=== PATIENT | female | born 1935 | race Caucasian/White ===

== ENCOUNTER 2016-04-16 10:39 | Emergency (ER) | payer MEDICARE ==
--- NOTE | 2016-04-16 10:47 | ER Document Report ---
ED Medical Screen (RME) - General Stated Complaint: ARM PAIN Notes: 80 yo female c/o left arm pain x 2 days. pain to left dorsal hand and wrist. + warmth. no trauma other than lifting package of water. BP is elevated. no hx/o HTN. Takes Metoprolol for irregular heart rate TRAVEL OUTSIDE OF THE [place] IN LAST 30 DAYS: No - Related Data Allergies/Adverse Reactions: acetaminophen [From Percocet] Allergy (Verified 04/16/16 10:43) rash oxycodone HCl [From Percocet] Allergy (Verified 04/16/16 10:43) rash Past Medical History - Past Medical History Cardiac Medical History: Denies: Hx Heart Attack, Hx Hypertension Pulmonary Medical History: Denies: Hx Asthma Neurological Medical History: Denies: Hx Cerebrovascular Accident, Hx Seizures GI Medical History: Denies: Hx Hepatitis, Hx Hiatal Hernia, Hx Ulcer Infectious Medical History: Denies: Hx Hepatitis Past Surgical History: Reports: Hx Hysterectomy. Denies: Hx Mastectomy, Hx Open Heart Surgery, Hx Pacemaker
[2016-04-16 11:26] LABS: ABSOLUTE BASOPHILS # (AUTO) 0.1 10^3/uL (0.0-0.2); ABSOLUTE EOSINOPHILS # (AUTO) 0.1 10^3/uL (0.0-0.6); ABSOLUTE LYMPHOCYTES (AUTO) 1.2 10^3/uL (0.5-4.7); ABSOLUTE MONOCYTES (AUTO) 1.1 10^3/uL (0.1-1.4); ABSOLUTE NEUT (AUTO) 10.2 10^3/uL (1.7-8.2); BASOPHILS % (AUTO) 0.5 % (0-2); EOSINOPHILS % (AUTO) 0.9 % (0-6); HEMATOCRIT 37.4 % (36.0-47.0); HEMOGLOBIN 12.6 g/dL (12.0-15.5); HGB HCT DIFFERENCE 0.4; LYMPHOCYTES % (AUTO) 9.5 % (13-45); MEAN CORPUSCULAR HEMOGLOBIN 30.8 pg (27.0-33.4); MEAN CORPUSCULAR HGB CONC 33.6 g/dL (32.0-36.0); MEAN CORPUSCULAR VOLUME 92 fl (80-97); MONOCYTES % (AUTO) 8.6 % (3-13); RED BLOOD COUNT 4.07 10^6/uL (3.72-5.28); RED CELL DISTRIBUTION WIDTH 12.3 % (11.5-14.0); SEGMENTED NEUTROPHILS % (AUTO) 80.5 % (42-78); WHITE BLOOD COUNT 12.7 10^3/uL (4.0-10.5)
--- NOTE | 2016-04-16 11:28 | ER Document Report ---
ED Extremity Problem, Upper - General Chief Complaint: Arm Pain Stated Complaint: ARM PAIN Time seen by provider: 11:23 Mode of Arrival: Ambulatory Information source: Patient Notes: 80-year-old female presents to ED for complaint of left hand pain and swelling with erythema since yesterday. This has been hurting for years but much worse for the last 2 weeks and then last night it started swelling and became red states she was lifting a lot of boxes she doesn't know if she injured something due to her severe arthritis. TRAVEL OUTSIDE OF THE [place] IN LAST 30 DAYS: No - HPI Patient complains to provider of: Left, Hand, Wrist Onset: Yesterday Recent injury: Possibly Where: Home Quality of pain: Sharp Severity of pain: Moderate Pain Level: 4 Context: Other - Lifting heavy boxes Associated symptoms: Fever - Erythema pain swelling Exacerbated by: Movement, Exertion Relieved by: Rest, Positioning Similar symptoms previously: Yes - not the erythema warmth Recently seen / treated by doctor: No - Related Data Allergies/Adverse Reactions: acetaminophen [From Percocet] Allergy (Verified 04/16/16 10:43) rash oxycodone HCl [From Percocet] Allergy (Verified 04/16/16 10:43) rash Past Medical History - General Information source: Patient - Social History Smoking Status: Former Smoker Cigarette use (# per day): No Chew tobacco use (# tins/day): No Smoking Education Provided: No Frequency of alcohol use: None Drug Abuse: None Occupation: retired Lives with: Family Family History: Arthritis, CAD, CVA, DM, Hyperlipidemia, Hypertension, Malignancy, Thyroid Disfunction Patient has suicidal ideation: No Patient has homicidal ideation: No - Past Medical History Cardiac Medical History: Reports: Hx Atrial Fibrillation, Hx Hypercholesterolemia, Hx Hypertension Pulmonary Medical History: Reports: None EENT Medical History: Reports: None Neurological Medical History: Reports: None Endocrine Medical History: Reports: None Renal/ Medical History: Reports: Other - Uterine fibroids Malignancy Medical History: Reports: None GI Medical History: Reports: Hx Gastroesophageal Reflux Disease Musculoskeltal Medical History: Reports Hx Arthritis Skin Medical History: Reports None Psychiatric Medical History: Reports: None Traumatic Medical History: Reports: None Infectious Medical History: Reports: None Past Surgical History: Reports: Hx Dilation and Curettage, Hx Gynecologic Surgery - Conization, Hx Hysterectomy, Other - Tumor removed from neck - Immunizations Immunizations up to date: Yes Hx Diphtheria, Pertussis, Tetanus Vaccination: Yes Review of Systems - Review of Systems Constitutional: No symptoms reported EENT: No symptoms reported Cardiovascular: No symptoms reported Respiratory: No symptoms reported Gastrointestinal: No symptoms reported Genitourinary: No symptoms reported Female Genitourinary: No symptoms reported Musculoskeletal: Other - Left hand and wrist painful swollen erythema Skin: Other - Erythema and swelling to left hand and wrist Hematologic/Lymphatic: No symptoms reported Neurological/Psychological: No symptoms reported -: Yes All other systems reviewed and negative Physical Exam - Vital signs Vitals: Temp Pulse Resp BP Pulse Ox 98.6 F 72 16 160/123 H 96 04/16/16 10:43 04/16/16 10:43 04/16/16 10:43 04/16/16 10:43 04/16/16 10:43 Interpretation: Normal, Hypertensive - 160/123 patient states her blood pressures up any time she has pain for recheck this - General General appearance: Appears well, Alert - HEENT Head: Normocephalic, Atraumatic Eyes: Normal Pupils: PERRL - Respiratory Respiratory status: No respiratory distress Chest status: Nontender Breath sounds: Normal Chest palpation: Normal - Cardiovascular Rhythm: Regular Heart sounds: Normal auscultation Murmur: No - Abdominal Inspection: Normal Distension: No distension Bowel sounds: Normal Tenderness: Nontender Organomegaly: No organomegaly - Back Back: Normal, Nontender - Extremities General upper extremity: Normal inspection, Nontender, Normal color, Normal ROM , Normal temperature General lower extremity: Normal inspection, Nontender, Normal color, Normal ROM , Normal temperature, Normal weight bearing. No: Heide's sign Wrist: Tender, Other - Erythema, warmth, and swelling Hand: Tender, Swelling, Other - warmth and erythema - Neurological Neuro grossly intact: Yes Cognition: Normal Orientation: AAOx4 Vandana Coma Scale Eye Opening: Spontaneous [place] Coma Scale Verbal: Oriented [place] Coma Scale Motor: Obeys Commands [place] Coma Scale Total: 15 Speech: Normal Motor strength normal: LUE, RUE, LLE, RLE Sensory: Normal - Psychological Associated symptoms: Normal affect, Normal mood - Skin Skin Temperature: Warm Skin Moisture: Dry Skin Color: Normal Course - Re-evaluation Re-evalutation: 04/16/16 13:48 Discussed x-rays and labs with patient written reports given to patient to follow-up with her doctor Dr. Roger. We will discharge patient home with prescription for Keflex prednisone and ibuprofen for her UTI. - Vital Signs Vital signs: Temp Pulse Resp BP Pulse Ox 98.6 F 72 16 160/80 H 96 04/16/16 10:43 04/16/16 10:43 04/16/16 10:43 04/16/16 12:14 04/16/16 10:43 - Laboratory Result Diagrams: 04/16/16 10:55 04/16/16 10:55 Laboratory results interpreted by me: 04/16/16 04/16/16 04/16/16 10:55 10:55 12:30 WBC 12.7 H Seg Neutrophils % 80.5 H Lymphocytes % 9.5 L Absolute Neutrophils 10.2 H Glucose 150 H Ur Leukocyte Esterase LARGE H - Diagnostic Test Radiology reviewed: Image reviewed, Reports reviewed Discharge - Discharge Clinical Impression: UTI (urinary tract infection) Qualifiers: Urinary tract infection type: site unspecified Hematuria presence: without hematuria Qualified Code(s): N39.0 - Urinary tract infection, site not specified Gout Qualifiers: Gout site: wrist Gout etiology: unspecified cause Laterality: left Chronicity: acute Qualified Code(s): M10.9 - Gout, unspecified Condition: Stable Disposition: HOME, SELF-CARE Additional Instructions: Gout You have been diagnosed as having gout. Gout is a problem caused by an excess of uric acid, a natural chemical found in the body. The cause of this disease is unknown. Gout arthritis occurs when crystals of uric acid form in the joints. The big toe is the most common joint involved, but any joint can become affected. Persons with gout may also form uric acid kidney stones, resulting in flank pain and blood in the urine. Nodules of uric acid may form under the skin. The first step of treatment is to decrease the inflammation in the joint with antiinflammatory medication. Medication to lower the uric acid level in the blood may then be prescribed. This medication should be taken regularly, as any sudden change in dosage may provoke an attack of gout. Some foods, such as red meat, can provoke an attack in some gout sufferers. Call the doctor if new symptoms arise, or if you do not improve. Gout Diet Changing your diet can decrease the uric acid in your blood. High levels of uric acid cause gouty arthritis and uric acid kidney stones. If you have gout , you should avoid meats that are high in purine. Meat products to avoid include liver, kidneys, and brains. In general, poultry is better than red meats. Seafoods to avoid include anchovies, sardines, avila, mackerel, and scallops. In addition to limiting purine-rich foods, people with gout should limit protein intake to 10-15% of total calories. Carbohydrate intake should be around 50% of total daily calories. Limit fat intake to 30% of total daily calories. Cholesterol intake should be less than 300 mg/day. Maintain or achieve a healthy body weight. Weight loss should be gradual. Rapid weight loss can actually increase uric acid levels temporarily. Alcohol, especially beer, should be avoided. Get plenty of fluids. This dilutes urinary uric acid, and helps prevent uric acid kidney stones. Drink eight to twelve cups of water daily. URINARY TRACT INFECTION: Your evaluation indicates that you have a urinary tract infection. This is due to germs growing in the bladder. This is a common problem. This infection usually responds quickly to antibiotics. Your antibiotic should be taken exactly as prescribed. Drink plenty of fluids -- three to four quarts a day. Occasionally, a bladder anesthetic will be prescribed to help stop the feeling of urgency until the antibiotic has a chance to clear the infection. This may cause your urine to be dark orange. Certain urine infections require a culture. If the doctor obtained a culture, the results will be back in two days. You should call to see if a change in treatment is needed. A repeat urinalysis after you finish treatment is often recommended. The physician will let you know if further testing is required. Call the doctor if you develop fever, chills, flank pain, inability to urinate, or blood in the urine. CEPHALEXIN: The antibiotic you've been prescribed is a member of the cephalosporin class. This type of antibiotic covers a wide variety of infections, including those of the skin, lungs, and urinary tract. It's useful for staph infections. This antibiotic is slightly similar to the penicillin family. In rare cases , a person who is allergic to penicillin will also be allergic to this medication. If you have had a severe allergic reaction to penicillin, and have not taken this antibiotic since that time, notify your doctor. Antibiotics which cover many germs ("broad spectrum" antibiotics) are more likely to cause diarrhea or "yeast" infections. Women prone to vaginal yeast problems may suffer an attack after taking this antibiotic. In infants, oral thrush (white spots "stuck" on the cheek) or yeast diaper rash may result. See your doctor if these problems occur. Call at once if you develop itching, hives , shortness of breath, or lightheadedness. Ibuprofen Ibuprofen is an excellent, safe drug for pain control. In addition, it has potent antiinflammatory effects which are beneficial, especially in the treatment of injuries, arthritis, or tendonitis. It's best to take ibuprofen with food. Persons with ulcer disease or allergy to aspirin should notify their physician of this before taking ibuprofen. Take the medication exactly as prescribed. Don't take additional doses unless instructed to do so by your doctor. If you develop wheezing, shortness of breath, hives, faintness, stomach pain, vomiting, or dark black stools, return for re-evaluation at once. STEROID MEDICATION: You have been given a medicine of the cortisone/steroid class. This medication is used to control inflammation or allergy. It is usually only given for a short period of time, until the acute process subsides. There are usually no side effects from short-term use of cortisone-like medications. Some persons feel an increased sense of well-being and are not sleepy at bedtime. Long-term use of cortisone medications is best avoided, unless required for a severe condition. If your condition does not remit, or relapses after the course of corticosteroid medication, you should consult your physician. FOLLOW-UP CARE: If you have been referred to a physician for follow-up care, call the physician s office for an appointment as you were instructed or within the next two days. If you experience worsening or a significant change in your symptoms, notify the physician immediately or return to the Emergency Department at any time for re-evaluation. Prescriptions: Cephalexin Monohydrate [Keflex 500 mg Capsule] 500 mg PO QID #20 capsule Ibuprofen 400 mg PO Q8 #10 tablet Prednisone [Sterapred Ds] 1 pkg PO ASDIR PRN 12 Days PRN Reason: Forms: Elevated Blood Pressure Referrals: WELLINGTON ROGER [Primary Care Provider] - 04/17/16
[2016-04-16 11:47] LABS: ALANINE AMINOTRANSFERASE 32 U/L (9-52); ALBUMIN 4.6 g/dL (3.5-5.0); ALKALINE PHOSPHATASE 67 U/L (38-126); ANION GAP 12 (5-19); ASPARTATE AMINO TRANSFERASE 23 U/L (14-36); BILIRUBIN,TOTAL 0.7 mg/dL (0.2-1.3); BLOOD UREA NITROGEN 15 mg/dL (7-20); CARBON DIOXIDE 27 mmol/L (22-30); CHLORIDE 104 mmol/L (98-107); CREATININE RESULT 0.66 mg/dL (0.52-1.25); GLUCOSE 150 mg/dL (75-110); POTASSIUM 4.4 mmol/L (3.6-5.0); SODIUM 142.7 mmol/L (137-145); TOTAL PROTEIN 7.3 g/dL (6.3-8.2); URIC ACID 6.6 mg/dL (2.5-7.5)
[2016-04-16 12:15] VITALS: BP 160/80
[2016-04-16 13:11] LABS: APPEARANCE,URINE SLIGHTLY-CLOUDY; BILIRUBIN,URINE NEGATIVE (NEGATIVE); GLUCOSE, URINE NEGATIVE (NEGATIVE); KETONES,URINE NEGATIVE (NEGATIVE); LEUKOCYTE ESTERASE,URINE LARGE (NEGATIVE); NITRITE,URINE NEGATIVE (NEGATIVE); PROTEIN,URINE NEGATIVE (NEGATIVE); URINE SPECIFIC GRAVITY 1.014; UROBILINOGEN,URINE NEGATIVE mg/dL (<2.0)
[2016-04-16] MEDS ORDERED: IBUPROFEN 400 MG TABLET PO ONE (13:40)
[2016-04-16] MEDS ORDERED: PREDNISONE 20 MG TABLET PO ONE (13:40)
[2016-04-16] MEDS ORDERED: CEPHALEXIN 500 MG CAPSULE PO ONE (13:41)
== END 2016-04-16 14:10 | disposition home or self-care (01) ==
LOC: ER 10:39
DX: N39.0 Urinary tract infection, site not specified (principal); M10.9 Gout, unspecified; M79.602 Pain in left arm; M79.89 Other specified soft tissue disorders; Z87.891 Personal history of nicotine dependence
CPT/HCPCS: 99283; 36415; 84550; 85025; 80053; 81001; 73110; A9270 ×3; J3490; J7512

== ENCOUNTER 2020-04-28 18:12 | Emergency (ER) | payer MEDICARE ==
--- NOTE | 2020-04-28 18:50 | ER Document Report ---
ED Medical Screen (RME) - General Chief Complaint: Chest Pain Stated Complaint: CHEST PAIN Time Seen by Provider: 04/28/20 18:37 Primary Care Provider: WELLINGTON HOLLIDAY MD [Primary Care Provider] - Follow up as needed Notes: Patient is 84-year-old female with a history of high blood pressure who presents emergency department with a chief complaint of chest pain. Patient states she was riding down the road on the way to dinner when she developed chest pain in the center of her chest. This is nonradiating. States that this has lasted about 1 hour. Is not currently having chest pain. Patient states at the time she did get a weird sensation in her teeth. TRAVEL OUTSIDE OF THE [place] IN LAST 30 DAYS: No - Related Data Allergies/Adverse Reactions: acetaminophen [From Percocet] Allergy (Verified 04/28/20 18:31) rash oxycodone HCl [From Percocet] Allergy (Verified 04/28/20 18:31) rash Home Medications: metoprolol. levothyroxine. pravastatin. asa Past Medical History - Social History Chew tobacco use (# tins/day): No Frequency of alcohol use: None Drug Abuse: None - Past Medical History Cardiac Medical History: Reports: Hx Atrial Fibrillation, Hx Hyper cholesterolemia, Hx Hypertension Denies: Hx Heart Attack Pulmonary Medical History: Denies: Hx Asthma Neurological Medical History: Denies: Hx Cerebrovascular Accident, Hx Seizures GI Medical History: Reports: Hx Gastroesophageal Reflux Disease. Denies: Hx Hepatitis, Hx Hiatal Hernia, Hx Ulcer Musculoskeltal Medical History: Reports Hx Arthritis Infectious Medical History: Denies: Hx Hepatitis Past Surgical History: Reports: Hx Dilation and Curettage, Hx Gynecologic Surgery - Conization, Hx Hysterectomy, Other - Tumor removed from neck. Denies: Hx Mastectomy, Hx Open Heart Surgery, Hx Pacemaker - Immunizations Immunizations up to date: Yes Hx Diphtheria, Pertussis, Tetanus Vaccination: Yes Physical Exam - Vital signs Vitals: Temp Pulse Resp BP Pulse Ox 98.7 F 82 16 172/87 H 96 04/28/20 18:23 04/28/20 18:23 04/28/20 18:23 04/28/20 18:23 04/28/20 18:23 - Respiratory Respiratory status: No respiratory distress Chest status: Nontender Breath sounds: Normal Chest palpation: Normal - Cardiovascular Rhythm: Regular Heart sounds: Normal auscultation, S1 appreciated, S2 appreciated Course - Re-evaluation Re-evalutation: 04/28/20 18:51 Nontoxic-appearing 84-year-old female. Patient was noted to be hypertensive. Denies chest pain at this time. Will initiate basic labs. I have greeted and performed a rapid initial assessment of this patient. A comprehensive ED assessment and evaluation of the patient, analysis of test results and completion of the medical decision making process will be conducted by additional ED providers. - Vital Signs Vital signs: Temp Pulse Resp BP Pulse Ox 98.7 F 82 16 172/87 H 96 04/28/20 18:23 04/28/20 18:23 04/28/20 18:23 04/28/20 18:23 04/28/20 18:23 Doctor's Discharge - Discharge Referrals: WELLINGTON HOLLIDAY MD [Primary Care Provider] - Follow up as needed
[2020-04-28 19:17] LABS: ABSOLUTE EOSINOPHILS # (AUTO) 0.3 10^3/uL (0.0-0.6); ABSOLUTE LYMPHOCYTES (AUTO) 2.6 10^3/uL (0.5-4.7); ABSOLUTE NEUT (AUTO) 3.9 10^3/uL (1.7-8.2); HEMOGLOBIN 12.4 g/dL (12.0-15.5); LYMPHOCYTES % (AUTO) 33.4 % (13-45); RED CELL DISTRIBUTION WIDTH 12.6 % (11.5-14.0); TOTAL CELLS COUNTED % (AUTO) 100 %
[2020-04-28] MEDS ORDERED: NITROGLYCERIN 0.4 MG/TAB 25 TAB/BOTTLE SL ONE (19:22)
[2020-04-28 19:24] LABS: ABSOLUTE MONOCYTES (AUTO) 0.9 10^3/uL (0.1-1.4); BASOPHILS % (AUTO) 0.6 % (0-2); EOSINOPHILS % (AUTO) 3.4 % (0-6); HEMATOCRIT 37.2 % (36.0-47.0); MEAN CORPUSCULAR HEMOGLOBIN 30.1 pg (27.0-33.4); MEAN CORPUSCULAR HGB CONC 33.5 g/dL (32.0-36.0); MEAN CORPUSCULAR VOLUME 90 fl (80-97); MONOCYTES % (AUTO) 11.8 % (3-13); PLATELET COUNT 235 10^3/uL (150-450); RED BLOOD COUNT 4.14 10^6/uL (3.72-5.28); SEGMENTED NEUTROPHILS % (AUTO) 50.8 % (42-78); WHITE BLOOD COUNT 7.6 10^3/uL (4.0-10.5)
--- NOTE | 2020-04-28 19:27 | EKG REPORT ---
SEVERITY:- BORDERLINE ECG - SINUS RHYTHM LVH BY VOLTAGE : Confirmed by: Cesar Vázquez MD 28-Apr-2020 19:27:14
--- NOTE | 2020-04-28 19:28 | ER Document Report ---
ED General - General Chief Complaint: Chest Pain Stated Complaint: CHEST PAIN Time Seen by Provider: 04/28/20 18:37 Primary Care Provider: WELLINGTON HOLLIDAY MD [Primary Care Provider] - Follow up as needed TRAVEL OUTSIDE OF THE [place] IN LAST 30 DAYS: No - HPI Notes: 84-year-old female presents with chest pain. Patient states that about 2 hours prior to evaluation, she developed an episode of central chest pain. States that she was in the car on the way to go to dinner P reports that it was hurting bad. States that she had an abnormal sensation in her teeth and a slight hea dache. Pain did not radiate. Patient ports that she has had this chest pain before. She states that she was seen in this emergency department and transferred to another facility, she states that she was diagnosed with extra heartbeats. She states that she did not have any stents placed. She has been on metoprolol since then. Patient reports she is currently pain-free. She has not yet taken her metoprolol as she takes this at night. She reports that her blood pressure is usually normal. - Related Data Allergies/Adverse Reactions: acetaminophen [From Percocet] Allergy (Verified 04/28/20 18:31) rash oxycodone HCl [From Percocet] Allergy (Verified 04/28/20 18:31) rash Home Medications: metoprolol. levothyroxine. pravastatin. asa Past Medical History - General Information source: Patient - Social History Smoking Status: Never Smoker Chew tobacco use (# tins/day): No Frequency of alcohol use: None Drug Abuse: None Family History: Arthritis, CAD, CVA, DM, Hyperlipidemia, Hypertension, Malignancy, Thyroid Disfunction Patient has homicidal ideation: No - Past Medical History Cardiac Medical History: Reports: Hx Atrial Fibrillation, Hx Hype rcholesterolemia, Hx Hypertension Denies: Hx Heart Attack Pulmonary Medical History: Denies: Hx Asthma Neurological Medical History: Denies: Hx Cerebrovascular Accident, Hx Seizures GI Medical History: Reports: Hx Gastroesophageal Reflux Disease. Denies: Hx Hepatitis, Hx Hiatal Hernia, Hx Ulcer Musculoskeletal Medical History: Reports Hx Arthritis Infectious Medical History: Denies: Hx Hepatitis Past Surgical History: Reports: Hx Dilation and Curettage, Hx Gynecologic Surgery - Conization, Hx Hysterectomy, Other - Tumor removed from neck. Denies: Hx Mastectomy, Hx Open Heart Surgery, Hx Pacemaker - Immunizations Immunizations up to date: Yes Hx Diphtheria, Pertussis, Tetanus Vaccination: Yes Review of Systems - Review of Systems Constitutional: denies: Chills, Fever EENT: No symptoms reported Cardiovascular: Chest pain Respiratory: denies: Short of breath Gastrointestinal: denies: Abdominal pain, Nausea, Vomiting Genitourinary: No symptoms reported Female Genitourinary: No symptoms reported Musculoskeletal: No symptoms reported Skin: No symptoms reported Hematologic/Lymphatic: No symptoms reported Neurological/Psychological: denies: Weakness Physical Exam - Vital signs Vitals: Temp Pulse Resp BP Pulse Ox 98.7 F 82 16 172/87 H 96 04/28/20 18:23 04/28/20 18:23 04/28/20 18:23 04/28/20 18:23 04/28/20 18:23 - General General appearance: Appears well, Alert In distress: None - HEENT Head: Normocephalic, Atraumatic Extraocular movements intact: Yes Pupils: PERRL - Respiratory Breath sounds: Normal - Cardiovascular Rhythm: Regular Heart sounds: Normal auscultation Normal capillary refill: Yes - Abdominal Tenderness: Nontender - Extremities General lower extremity: No: Edema - Neurological Neuro grossly intact: Yes Cognition: Normal Orientation: AAOx4 Speech: Normal Cranial nerves: Normal Motor strength normal: LUE, RUE, LLE, RLE - Psychological Associated symptoms: Normal affect - Skin Skin Temperature: Warm Course - Re-evaluation Re-evalutation: 84-year-old female presents with an episode of central chest pressure while she was in the car going to dinner. Chest pain-free upon evaluation. On exam patient is alert, well-appearing, neurologically intact, lungs are clear, heart RRR, no peripheral edema. She is noted to be fairly hypertensive. I am suspicious that the hypertension is the driving cause of the chest pain that she experienced. Her story is not necessarily completely concerning for ACS, however given her age she will need a 2 troponin evaluation. Her EKG is nonischemic. 04/28/20 20:25 Patient's blood pressure had initially improved following nitro, down to 120 systolic. Starting to creep up a little bit, currently 152/83, have ordered her typical home dose of metoprolol she has not yet taken this today. 04/28/20 22:42 Went into reassess patient. She remains chest pain-free. I updated her on relatively reassuring work-up currently. Her blood pressures still remain variable, currently in 160s, however symptom-free currently. Pending repeat troponin. 04/28/20 23:35 Troponin undetectable x2. Patient remains chest pain free. Her blood pressure has had a good decrease from the 200s, is 162 in the room. She has a follow-up with her primary care doctor tomorrow. She feels comfortable going home. As discussed strict return precautions, she is stable at time of discharge. - Vital Signs Vital signs: Temp Pulse Resp BP Pulse Ox 98.2 F 70 21 H 170/89 H 100 04/28/20 23:55 04/28/20 23:55 04/28/20 23:55 04/28/20 23:55 04/28/20 23:55 - Laboratory Results Result Diagrams: 04/28/20 18:55 04/28/20 18:55 Laboratory Results Interpreted: 04/28/20 18:55 Chloride 108 H Critical Laboratory Results Reviewed: No Critical Results - Radiology Results Critical Radiology Results Reviewed: No Critical Results - EKG Interpretation by Me Additional EKG results interpreted by me: EKG is interpreted by me. Sinus rhythm, rate 80. Narrow QRS, QTC within normal limits. No ST segment elevation or depression. LVH. Discharge - Discharge Clinical Impression: Hypertension Qualifiers: Hypertension type: essential hypertension Qualified Code(s): I10 - Essential (primary) hypertension Disposition: HOME, SELF-CARE Additional Instructions: Please follow-up with your primary care doctor tomorrow as planned. Please continue all medications as described, please discuss if you need to be started on another blood pressure medication or an increased dose of the metoprolol. Turn to the emergency department for any concerning worsening symptoms. Referrals: WELLINGTON HOLLIDAY MD [Primary Care Provider] - Follow up as needed
--- NOTE | 2020-04-28 19:30 | RADIOLOGY REPORT (SQ) ---
EXAM DESCRIPTION: CHEST 2 VIEWS IMAGES COMPLETED DATE/TIME: 04/28/2020 6:07 pm REASON FOR STUDY: chest pain COMPARISON: None. EXAM PARAMETERS: NUMBER OF VIEWS: two views TECHNIQUE: Digital Frontal and Lateral radiographic views of the chest acquired. RADIATION DOSE: NA LIMITATIONS: none FINDINGS: LUNGS AND PLEURA: Lungs are hyperinflated. No opacities, masses or pneumothorax. No pleur al effusion. MEDIASTINUM AND HILAR STRUCTURES: No masses or contour abnormalities. HEART AND VASCULAR STRUCTURES: Heart normal size. No evidence for failure. BONES: No acute findings. HARDWARE: None in the chest. OTHER: No other significant finding. IMPRESSION: No acute cardiopulmonary disease. Hyperinflated lungs which can be seen with obstructiv e lung disease. TECHNICAL DOCUMENTATION: JOB ID: [id number] 2010 [employer]- All Rights Reserved Reading location - IP/workstation name: [email or web address]
[2020-04-28 19:37] LABS: ALBUMIN 4.2 g/dL (3.5-5.0); ALKALINE PHOSPHATASE 65 U/L (38-126); ANION GAP 7 (5-19); ASPARTATE AMINO TRANSFERASE 24 U/L (14-36); BILIRUBIN,DIRECT 0.2 mg/dL (0.0-0.4); BILIRUBIN,TOTAL 0.4 mg/dL (0.2-1.3); BLOOD UREA NITROGEN 16 mg/dL (7-20); CALCIUM 9.5 mg/dL (8.4-10.2); CARBON DIOXIDE 24 mmol/L (22-30); CHLORIDE 108 mmol/L (98-107); GLUCOSE 90 mg/dL (75-110); POTASSIUM 4.1 mmol/L (3.6-5.0)
--- OUTSIDE RECORDS SUMMARY | 2020-04-28 20:10 | XMS REPORT ---
:1935 [facility] [address] [place] [address] Care Team Providers Name Role Phone Yessica Roger Primary Care Physician Unavailable Yessica Roger MD Attending Clinician Unavailable Allergies, Adverse Reactions, Alerts Allergy Allergy Status Severity Reaction(s) Onset Inactive Treating C omments Name Type Date Date Clinician Percocet Percocet Active TABS TABS Medications Ordered Filled Start Stop Current Ordering Indication Dosage Frequency Signature Comments Components Medication Medication Date Date Medication? Clinician (SIG) Name Name Levothyroxi 2019-04 Yes Walter B Levothyrox ne Sodium 0-23 Acacia NEELY ine Sodium 75 MCG Oral 10:17: 75 MCG Tablet 41 Oral Tablet TAKE ONE TABLET BY MOUTH EVERY MORNING ON AN EMPTY STOMACH Quantity: 90 Refills: 0 Walter Roger MD Start : 0Active Pravastatin 2019-04 Yes Walter Juan Pravastati Sodium 20 0-23 Acacia NEELY n Sodium MG Oral 10:17: 20 MG Oral Tablet 31 Tablet TAKE ONE TABLET BY MOUTH EVERY NIGHT AT BEDTIME Quantity: 90 Refills: 3 Walter Roger MD Start : 0Active Metoprolol Yes Walter Juan Metoprolol Succinate 8-20 Acacia NEELY Succinate ER 50 MG 15:18: ER 50 MG Oral Tablet 45 Oral Extended Tablet Release 24 Extended Hour Release 24 Hour TAKE ONE TABLET BY MOUTH EVERY DAY Quantity: 90 Refills: 3 Walter Roger MD Start : 0Active Levothyroxi 2019- No Walter B Levothyrox ne Sodium 7-22 Acacia NEELY ine Sodium 75 MCG Oral 12:06: 75 MCG Tablet 02 Oral Tablet TAKE 1 TABLET BY MOUTH ONCE DAILY IN THE MORNING ON AN EMPTY STOMACH Quantity: 90 Refills: 0 Walter Roger MD Start : 0Active Shingrix 50 2018- No Walter B Shingrix MCG 1-16 Acacia NEELY 50 MCG Intramuscul 00:00: Intramuscu ar 00 lar Suspension Suspension Reconstitut Reconstitu ed brandan Inject 0.5 ml intramuscu larly in 2 - 6 months after initial vaccine Quantity: 0.5 Refills: 0 Walter Roger MD Start : 9Active Shingrix 50 Yes Walter Juan Shingrix MCG 1-16 Acacia NEELY 50 MCG Intramuscul 00:00: Intramuscu ar 00 lar Suspension Suspension Reconstitut Reconstitu ed brandan Inject 0.5 ml intramuscu larly in 2 - 6 months after initial vaccine Quantity: 0.5 Refills: 0 Walter Roger MD Start : 9Active Betamethaso Yes Walter Juan Betamethas ne Valerate 8- Acacia NEELY one 0.1 % 00:00: Valerate External 00 0.1 % Lotion External Lotion APPLY SPARINGLY TO THE AFFECTED AREA THREE TIMES DAILY *THIS IS A SPECIAL ORDER MEDICATION PLEASE CALL AHEAD* Quantity: 60 Refills: 1 Walter Roger MD Start : 7Active Vitamin D3 Yes Walter Juan 1 QD Vitamin D3 25 MCG 2- Acacia NEELY 25 MCG (1000 UT) 00:00: (1000 UT) Oral 00 Oral Capsule Capsule TAKE 1 CAPSULE DAILY Quantity: 90 Refills: 3 Walter Roger MD Start : 7Active Pravastatin No Walter Juan Pravastati Sodium 20 - Acacia NEELY n Sodium MG Oral 00:00: 20 MG Oral Tablet 00 Tablet TAKE ONE TABLET BY MOUTH EVERY NIGHT AT BEDTIME Quantity: 90 Refills: 3 Walter Roger MD Start : 5Active Lansoprazol Yes Walter Juan Lansoprazo e 30 MG - Acacia NEELY le 30 MG Oral 00:00: Oral Capsule 00 Capsule Delayed Delayed Release Release TAKE ONE CAPSULE BY MOUTH EVERY MORNING Quantity: 90 Refills: 3 Walter Roger MD Start : 10-Jun-2014 Active Metoprolol No Walter Juan Metoprolol Succinate 07-08 Acacia NEELY Succinate ER 50 MG 00:00: ER 50 MG Oral Tablet 00 Oral Extended Tablet Release 24 Extended Hour Release 24 Hour TAKE ONE TABLET BY MOUTH EVERY DAY Quantity: 90 Refills: 3 Walter Roger MD Start : 08-Jul-2009 Active Aspirin 81 2005-04 Yes Walter Juan QD Aspirin 81 MG TABS 1-28 Acacia NEELY MG TABS 00:00: TAKE 1 00 TABLET DAILY WITH FOOD Refills: 0 Acacia NEELY, Walter Juan Start : 6Active Problems Condition Condition Condition Status Onset Resolution Last Treatin g Comments Name Details Category Date Date Treatment Clinician Date Pain in Pain in Problem Active joint of joint of right right shoulder shoulder Microalbumi Microalbumi Problem Active calixto calixto Diverticulo Diverticulo Problem Active sis of sis of large large intestine intestine without without hemorrhage hemorrhage Esophageal Esophageal Problem Active reflux reflux Acute upper Acute upper Problem Active respiratory respiratory infection infection Right hip Right hip Problem Active pain pain Sinus Sinus Problem Active bradycardia bradycardia Musculoskel Musculoskel Problem Active etal pain, etal pain, chronic chronic Allergic Allergic Problem Active rhinitis rhinitis Impacted Impacted Problem Active cerumen of cerumen of right ear right ear Chronic Chronic Problem Active laryngitis laryngitis Rhinitis, Rhinitis, Problem Active nonallergic nonallergic , chronic , chronic Deviated Deviated Problem Active septum septum Hoarseness Hoarseness Problem Active or changing or changing voice voice Lightheaded Lightheaded Problem Active ness ness Orthostatic Orthostatic Problem Active hypotension hypotension Chest Chest Problem Active tightness tightness or pressure or pressure Pyuria Pyuria Problem Active Postmenopau Postmenopau Problem Active caitlin caitlin osteoporosi osteoporosi s s Visit for Visit for Problem Active screening screening mammogram mammogram Immunizatio Immunizatio Problem Active n due n due Hypertensio Hypertensio Problem Active n n Hypercholes Hypercholes Problem Active terolemia terolemia Impaired Impaired Problem Active glucose glucose regulation regulation Hypothyroid Hypothyroid Problem Active ism ism Arthritis Arthritis Problem Active Fatigue Fatigue Problem Active Chronic Chronic Problem Active insomnia insomnia Procedures Procedure Date / Time Performed Performing Clinician Adina winters Vitamin D Total 2020-04-22 00:00:00 HGBA1C 2020-04-22 00:00:00 Urinalysis 2020-04-22 00:00:00 TSH 2020-04-22 00:00:00 Free T4 2020-04-22 00:00:00 CBC 2020-04-22 00:00:00 Lipid Panel 2020-04-22 00:00:00 CMP(Complete Metabolic Panel) 2020-04-22 00:00:00 TSH 2020-01-22 00:00:00 Free T4 2020-01-22 00:00:00 MG-Breast Tomosynthesis(3D) 2020-01-22 00:00:00 Screening (Bilateral) MG-Mammogram Screening (Bilateral) 2020-01-22 00:00:00 HGBA1C 2019-12-30 00:00:00 CBC 2019-12-30 00:00:00 Renal Panel 2019-12-30 00:00:00 Urinalysis 2019-12-30 00:00:00 Procedures not documented Results Test Description Test Time Test Comments Text Results Atomic Results Result Comments CBC 2020-01-22 11:20:00 Test Item Value Reference Range Comments White Blood Cell (test code = White Blood Cell) 8.3 K/uL 3.5-11.1 Red Blood Cell (test code = Red Blood Cell) 4.18 {M/uL} 3.69 -4.87 Hemoglobin (test code = Hemoglobin) 12.6 g/dL 11.4-14.4 Hematocrit (test code = Hematocrit) 39 % 33-41 Mean Corpuscular Volume (test code = Mean Corpuscular Volume) 92 .1 fL 79.0-95.0 Mean Corpuscular Hemoglobin (test code = Mean Corpuscular 30.1 p g/mL 27.0-33.0 Hemoglobin) Mean Corpuscular Hemoglobin Concentration (test code = Mean 32.7 g/dL 33.5-35.5 Corpuscular Hemoglobin Concentration) Red Cell Distribution Width (test code = Red Cell 12.4 % 12.0-15.0 Distribution Width) Platelet (test code = Platelet) 278 K/uL 130-353 Mean Platelet Volume (test code = Mean Platelet Volume) 11.5 fL 7.5-10.7 Neutrophil Count, absolute (test code = Neutrophil Count, 5.0 K/ uL 1.9-7.2 absolute) Neutrophil Count Percentage (test code = Neutrophil Count 60.1 % 43.0-72.0 Percentage) Lymphocyte Count, absolute (test code = Lymphocyte Count, 2.1 K/ uL 1.1-2.7 absolute) Lymphocyte Count Percentage (test code = Lymphocyte Count 25.1 % 17.0-44.0 Percentage) Monocyte Count, absolute (test code = Monocyte Count, 0.9 K/uL 0.3-0.8 absolute) Monocyte Count Percentage (test code = Monocyte Count 10.8 % 4.5-12.4 Percentage) Eosinophil Count, absolute (test code = Eosinophil Count, 0.2 K/ uL 0.0-0.5 absolute) Eosinophil Count Percentage (test code = Eosinophil Count 2.8 % 0.7-7.8 Percentage) Basophil Count, absolute (test code = Basophil Count, 0.1 K/uL 0.0-0.1 absolute) Basophil Count Percentage (test code = Basophil Count 0.7 % 0.2-1.1 Percentage) Nucleated Red Blood Cell, absolute (test code = Nucleated Re d 0.00 K/uL 0.00-0.00 Blood Cell, absolute) Nucleated Red Blood Cell, percentage (test code = Nucleated 0.00 % 0.00-0.00 Red Blood Cell, percentage) Hemoglobin [id number] 11:20:00 Test Item Value Reference Range Comments Hemoglobin A1C (test code = 4548-4) 6.1 % 4.3-6.2 [id number] 11:20:00 Test Item Value Reference Range Comments Urine Color (test code = Urine LT. YELLOW Yellow Color) Urine Clarity (test code = CLEAR Clear Urine Clarity) Urine Glucose (test code = NEGATIVE Negative Urine Glucose) Urine Ketones (test code = NEGATIVE Negative Urine Ketones) Urine Bilirubin (test code = NEGATIVE Negative Urine Bilirubin) Urine Specific [place] (test 1.025 1.010-1.030 code = Urine Specific [place]) Urine Blood (test code = Urine NEGATIVE Negative Blood) Urine pH (test code = Urine pH) 5.5 5.0-8.0 Urine Protein (test code = NEGATIVE Negative Urine Protein) Urine Urobilinogen (test code = 0.2 Eu/dl 0.2 Urine Urobilinogen) Urine Nitrites (test code = NEGATIVE Negative Urine Nitrites) Urine Leukocytes (test code = TRACE Negative UR INE MICROSCOPIC: 0-2 WBCS Urine Leukocytes) Thyroid Stimulating [id number] 11:20:00 Test Item Value Reference Range Comments Thyroid Stimulating Hormone (test code = 0.23 {mIU/mL} 0.46-4. 68 Thyroid Stimulating Hormone) Free [id number] 11:20:00 Test Item Value Reference Range Comments Free T4 (test code = Free T4) 1.41 ng/dL 0.78-2.19 [id number] 11:20:00 Test Item Value Reference Range Comments Glucose (test code = Glucose) 104 mg/dL 74-106 Sodium (test code = Sodium) 140 mmol/L 135-145 Potassium (test code = Potassium) 4.8 mmol/L 3.5-5.3 Chloride (test code = Chloride) 103 mmol/L 98-107 CO2 (test code = CO2) 27 mmol/L 22-30 Creatinine, serum (test code = Creatinine, serum) 0.70 mg/dL 0.10-1.04 Glomerular Filtration Rate (test code = >60 >60 Glomerular Filtration Rate) Glomerular Filtration Rate AA (test code = >60 >60 Glomerular Filtration Rate AA) Blood Urea Nitrogen (test code = Blood Urea 19 mg/dL 7-17 Nitrogen) Calcium (test code = Calcium) 9.8 mg/dL 8.4-10.5 Phosphorus (test code = Phosphorus) 4.0 mg/dL 2.5-4.5 Albumin (test code = 70147-5) 4.3 g/dL 3.5-5.0 URIC ACID\[id number] 10:55:00 Test Item Value Reference Range Comments URIC ACID (test code = URIC) 6.6 mg/dL 2.5-7.5 COMPREHENSIVE METABOLIC PANEL\[id number] 10:55:00 Test Item Value Reference Range Comments CHLORIDE (test code = CL) 104 mmol/L 98-107 ALBUMIN (test code = ALB) 4.6 g/dL 3.5-5.0 ANION GAP (test code = ANION) 12 5-19 CREATININE RESULT (test code = CREA) 0.66 mg/dL 0.52-1.25 CARBON DIOXIDE (test code = CO2) 27 mmol/L 22-30 ASPARTATE AMINO TRANSFERASE (test code = AST) 23 U/L 14 -36 CALCIUM (test code = CA) 10.0 mg/dL 8.4-10.2 EGFR,NON (test code = GFRN) > 60 >60 BILIRUBIN,TOTAL (test code = TBIL) 0.7 mg/dL 0.2-1.3 SODIUM (test code = NA) 142.7 mmol/L 137-145 POTASSIUM (test code = K) 4.4 mmol/L 3.6-5.0 TOTAL PROTEIN (test code = TP) 7.3 g/dL 6.3-8.2 ALKALINE PHOSPHATASE (test code = ALKP) 67 U/L 38-126 BLOOD UREA NITROGEN (test code = BUN) 15 mg/dL 7-20 BILIRUBIN,DIRECT (test code = BC) 0.0 mg/dL 0.0-0.3 GLUCOSE (test code = GLU) 150 mg/dL 75-110 ALANINE AMINOTRANSFERASE (test code = ALT) 32 U/L 9-52 EGFR, (test code = GFRAA) > 60 >60 Assessments Condition Name Status Diagnosis Date Treating Clinici an Impaired glucose regulation Active Hypertension Active Immunization due Active Fatigue Active Arthritis Active Hypercholesterolemia Active Hypothyroidism Active Impaired glucose regulation Active Hypertension Active Fatigue Active Chronic insomnia Active Arthritis Active Hypercholesterolemia Active Hypothyroidism Active Impaired glucose regulation Active Fatigue Active Chronic insomnia Active Arthritis Active Hypercholesterolemia Active Hypothyroidism Active Hypertension Active Impaired glucose regulation Active Immunization due Active Hypertension Active Visit for screening mammogram Active Postmenopausal osteoporosis Active Fatigue Active Chronic insomnia Active Arthritis Active Hypercholesterolemia Active Hypothyroidism Active Impaired glucose regulation Active Hypertension Active Hypercholesterolemia Active Hypothyroidism Active Chest tightness or pressure Active Impaired glucose regulation Active Chest tightness or pressure Active Hypertension Active Fatigue Active Arthritis Active Hypercholesterolemia Active Hypothyroidism Active Impaired glucose regulation Active Impacted cerumen of right ear Active Deviated septum Active Hoarseness or changing voice Active Chronic laryngitis Active Rhinitis, nonallergic, chronic Active Fatigue Active Lightheadedness Active Orthostatic hypotension Active Hypothyroidism Active Hypertension Active Fatigue Active Arthritis Active Hypercholesterolemia Active Hypothyroidism Active Impaired glucose regulation Active Hypertension Active Immunization due Active Visit for screening mammogram Active Postmenopausal osteoporosis Active Fatigue Active Arthritis Active Hypercholesterolemia Active Hypothyroidism Active Hypertension Active Hypercholesterolemia Active Allergic rhinitis Active Chest tightness or pressure Active Impaired glucose regulation Active Hypertension Active Musculoskeletal pain, chronic Active Visit for screening mammogram Active Postmenopausal osteoporosis Active Hypercholesterolemia Active Hypothyroidism Active Impaired glucose regulation Active Fatigue Active Chronic insomnia Active Arthritis Active Hypercholesterolemia Active Hypothyroidism Active Hypertension Active Impaired glucose regulation Active Encounters Start End Encounter Type Admission Attending Care Care Encou nter Date/Time Date/Time Type Clinicians Facility Department ID 2020-04-29 2020-04-22 Appointment; [facility] [id number] 10:00:00 08:00:38 Walter Roger Mark B MD 2020-01-22 2020-01-22 Appointment; [facility] [id number] 10:45:00 10:45:00 Walter Roger Mark B MD 2020-01-01 2019-12-30 [facility] [id number] 11:00:00 10:30:42 Walter Roger Mark B MD 2019-09-19 2019-09-19 Appointment; MARSHA Roger [facility] [id number] 10:45:00 10:45:00 Walter Roger Mark B MD 2019-06-19 2019-06-19 [facility] [id number] 10:15:00 10:15:00 Walter Roger Mark B MD 2019-02-27 2019-02-27 Appointment; [facility] [id number] 11:10:00 11:10:00 Mammogram, [place] 2019-02-27 2019-02-27 Appointment; MARSHA Roger [facility] [id number] 10:00:00 10:00:00 Walter Roger Mark B MD 2018-11-20 2018-11-20 Appointment; [facility] [id number] 10:45:00 10:45:00 Walter Roger Mark B MD 2018-09-03 2018-09-03 Appointment; [facility] [id number] 15:00:00 15:00:00 Walter Roger Mark B MD 2018-08-27 2018-08-27 Appointment; [facility] [id number] 10:15:00 10:15:00 Aleksandar Stokes MD 2018-08-02 2018-08-02 Appointment; [facility] [id number] 10:15:00 10:15:00 Walter Roger Mark B MD 2018-04-24 2018-04-24 Appointment; [facility] [id number] 11:00:00 11:00:00 Walter Roger Mark B MD 2018-04-24 2018-04-24 Appointment; [facility] [id number] 09:15:00 09:15:00 [place] [id number] 2018-04-10 2018-04-10 Appointment; MARSHA Roger [facility] [id number] 11:00:00 11:00:00 Walter Roger Mark B MD 2018-01-21 2018-01-21 Appointment; [facility] [id number] 10:40:00 10:40:00 Mammogram, Melisa 2018-01-21 2018-01-21 Appointment; MARSHA Roger [facility] [id number] 10:00:00 10:00:00 Walter Roger Mark B MD Family History Family Member Diagnosis Comments Start Date Stop Date spouse Family history of hepatic cirrhosis spouse Family history of Heart attack Mother Family history of stroke Mother Family history of hypertension Mother Family history of Diabetes Father Family history of hepatic cirrhosis Sister Family history of stroke Brother Family history of stroke Brother Family history of Heart attack Immunizations Ordered Immunization Filled Immunization Date Status Commen ts Refusal Reason Name Name Influenza, high dose 2019-02-27 Completed seasonal, 00:00:00 preservative-free Fluzone High-Dose 0.5 2018-01-21 Completed ML Intramuscular 00:00:00 Suspension Prefilled Syringe Fluzone High-Dose 0.5 2017-01-22 Completed ML Intramuscular 00:00:00 Suspension Prefilled Syringe Influenza 2014-12-23 Completed 00:00:00 Zostavax [id number] 2014-05-20 Completed UNT/0.65ML 00:00:00 Subcutaneous Solution Reconstituted Prevnar 13 2014-05-13 Completed Intramuscular 00:00:00 Suspension Influenza 2012-01-16 Completed 00:00:00 Pneumococcal 2011-04-12 Completed polysaccharide 00:00:00 vaccine, 23 valent Influenza 2011-01-19 Completed 00:00:00 Influenza 2010-01-19 Completed 00:00:00 Influenza 2009-01-06 Completed 00:00:00 Influenza 2007-03-18 Completed 00:00:00 Influenza 2006-03-06 Completed 00:00:00 Plan of Treatment Planned Activity Planned Date Details Comments Future Scheduled Test [code = ] Future Scheduled Test [code = ] Social History Smoking Status Start Date Stop Date Never smoked tobacco (finding) Vital Signs Vital Name Observation Time Observation Value Comments Systolic blood pressure 2020-01-22 11:10:00 125 mm[Hg] Loca tion: LUE; Position: Sittin g Diastolic blood pressure 2020-01-22 11:10:00 68 mm[Hg] Loc ation: LUE; Position: Sittin g Heart Rate 2020-01-22 11:10:00 68 /min Quality: Reg ular Respiratory rate 2020-01-22 11:10:00 15 /min Quality: No rmal Heart Rate 2020-01-22 10:38:00 70 /min Body height 2020-01-22 10:38:00 25 [in_us] Weight 2020-01-22 10:38:00 105.25 [lb_av] Body mass index (BMI) 2020-01-22 10:38:00 118.4 kg/m2 [Ratio] Body temperature 2020-01-22 10:38:00 97.8 [degF] Hospital Discharge Instructions NameDatesDetailsInstructions not documentedNameDatesDetailsInstructions not documentedNameDatesDetailsInstructions not documented
[2020-04-28] MEDS ORDERED: METOPROLOL TARTRATE 50 MG TABLET PO ONE (20:25)
[2020-04-28 23:55] VITALS: BP 170/89
== END 2020-04-28 23:55 | disposition home or self-care (01) ==
LOC: ER 18:12
DX: I10 Essential (primary) hypertension (principal); R07.9 Chest pain, unspecified; I48.91 Unspecified atrial fibrillation; E78.00 Pure hypercholesterolemia, unspecified; Z88.6 Allergy status to analgesic agent
CPT/HCPCS: 93005; 99285; 36415; 85025; 80053; 84484; 83880; 71046; 93010; A9270 ×2